=== PATIENT | male | born 1970 | race Caucasian/White ===

== ENCOUNTER 2022-04-06 07:00 | Day surgery (SDC) | payer OTHER ==
[~2022-04-06] VITALS: Ht 185.4 cm; Wt 166.0 kg
--- NOTE | ~2022-04-06 | OR ---
[facility] [address] [facility] [place], [place] [address] Draft DATE OF OPERATION: 04/06/2022 SURGEON: Deandra Ramon MD PREOPERATIVE DIAGNOSES: 1. Persistent diarrhea. 2. Episodic rectal bleeding. POSTOPERATIVE DIAGNOSIS: Severe colitis, left colon and rectum with proximal sparing. PROCEDURE: Total colonoscopy to cecum with intubation of ileum and biopsies. ANESTHESIA: Intravenous sedation, propofol infusion; Jonatan Moreno CRNA INDICATIONS: This 52-year-old obese white man has a number of medical issues. For the past six months at least, he has had episodes of diarrhea and occasional blood per rectum. His last colonoscopy was by Dr. Mesa, his primary provider in 2009, which was normal. He is admitted at this time to undergo colonoscopy to better characterize the problem, understand the risks of bleeding, infection, and perforation. FINDINGS: He had colitis, most consistent with ulcerative colitis. Extended from the rectum to the splenic flexure. This did not represent ischemic colitis. The colon more proximally was generally normal as was the ileum. DESCRIPTION OF PROCEDURE: The patient was brought to the endoscopy suite, given intravenous sedation with propofol infusional technique given his advanced underlying comorbidities. Digital rectal examination was normal. An Olympus video colonoscope was passed into the rectum and manipulated throughout the colon, noting inflammatory changes of the rectum, sigmoid, and all of the left colon. The scope was passed beyond the transverse colon to the cecum, which was entirely normal. The ileum was normal. Scope was passed into the ileum and biopsies obtained though the mucosa appeared normal. Scope was withdrawn and biopsies taken of the cecum and upon withdrawal of scope, the transverse colon. Biopsies were additionally taken of PATIENT NAME: JORDEN BRONSON OPERATIVE REPORT DATE OF : 72 REPORT #: [id number] PHYSICIAN: DEANDRA RAMON MD PCP: BK MESA MD REPORT IS CONFIDENTIAL AND NOT TO BE RELEASED WITHOUT AUTHORIZATION [address], [place] [address] Draft the proximal descending colon, sigmoid and the rectum. The scope was removed. The patient was taken to the recovery room in good condition. CONCLUDING DIAGNOSIS: Colitis, most likely ulcerative colitis. PLAN: We will initiate protocol of steroids, prednisone 40 mg daily tapering 10 mg every two weeks. Initiate mesalamine 800 mg t.i.d. (total 2.4 g daily), Flagyl 250 mg p.o. t.i.d. x2 weeks, and PPI medication on the basis of his steroid use (Prilosec 20 mg p.o. daily). He will return to see me in approximately 4 weeks. MD DANIELLA Chavez/RHIANNA /[id number] cc: Bk Mesa MD Copies: BK MESA MD ~ PATIENT NAME: JORDEN BRONSON OPERATIVE REPORT DATE OF : 72 REPORT #: [id number] PHYSICIAN: DEANDRA RAMON MD PCP: BK MESA MD REPORT IS CONFIDENTIAL AND NOT TO BE RELEASED WITHOUT AUTHORIZATION
[~2022-04-06 07:00] MED LIST: CARVEDILOL25 MG PO; ENTRESTO 97 MG1 EACH PO; SPIRONOLACTONE50 MG PO
--- NOTE | 2022-04-06 08:32 | NUR ---
PT ALERT, ORIENTED AND SUPPORTED BY HIS LUIS ANTONIO.PT HAS HAD SCOPE BEFORE AND SEEMS CALM, ALL QUESTIONS ASKED ANSWERED. HAD PRAYER WITH BOTH, LUIS ANTONIO WILL REMAIN FOR DC. WILL FOLLOW NEEDED
[2022-04-06] MEDS ORDERED: FLAGYL375 MG PO (09:08)
[2022-04-06] MEDS ORDERED: PREDNISONE10 MG PO (09:08)
[2022-04-06] MEDS ORDERED: PRILOSEC OTC20 MG PO (09:09)
[2022-04-06] MEDS ORDERED: MESALAMINE800 MG PO (09:10)
--- NOTE | 2022-04-06 09:37 | NUR ---
04/06/22 0937 Rashmi Ty 0856 PT ARRIVED IN PACU WIDE AWAKE WITH NO C/O'S. ABD SOFT. 0915 SITTING UP IN BED SIPPING ON WATER. 09 DR AT BEDSIDE. ALL QUESTIONS ANSWERED. 33 LEFT VIA W/C.
--- NOTE | 2022-04-08 12:58 | PATH ---
[facility] [address] [place], [place] [address] Signed SPECIMEN(S): A CECUM COLON BIOPSY SPECIMEN(S): B TERMINAL ILEUM BIOPSY SPECIMEN(S): C TRANSVERSE COLON BIOPSY SPECIMEN(S): D SPLENIC FLEXURE COLON BIOPSY SPECIMEN(S): E PROXIMAL DESCENDING/LEFT COLON BIOPSY SPECIMEN(S): F SIGMOID COLON BIOPSY SPECIMEN(S): G SIGMOID/RECTUM COLON BIOPSY SPECIMEN SOURCE: A. CECUM COLON BIOPSY B. TERMINAL ILEUM BIOPSY C. TRANSVERSE COLON BIOPSY D. SPLENIC FLEXURE COLON BIOPSY E. PROXIMAL DESCENDING/LEFT COLON BIOPSY F. SIGMOID COLON BIOPSY G. SIGMOID/RECTUM COLON BIOPSY CLINICAL HISTORY: Preop: Diarrhea; rectal bleeding; right lower abdominal pain. Postop: Colitis FINAL PATHOLOGIC DIAGNOSIS: A. Colon, cecum, biopsy: - Colonic mucosa with no histopathologic abnormality. - Negative for active, chronic, or microscopic colitis. - Negative for granulomas, dysplasia, or malignancy. B. Terminal ileum, biopsy: - Ileal mucosa with no histopathologic abnormality. - Negative for active inflammation or granulomas. - Negative for dysplasia or malignancy. C. Colon, transverse, biopsy: - Colonic mucosa with no histopathologic abnormality. - Negative for active, chronic, or microscopic colitis. - Negative for granulomas, dysplasia, or malignancy. D. Colon, splenic flexure, biopsy: - Colonic mucosa with no histopathologic abnormality. - Negative for active, chronic, or microscopic colitis. - Negative for granulomas, dysplasia, or malignancy. E. Colon, proximal descending/left, biopsy: - Chronic, active colitis. - Negative for granulomas, dysplasia, or malignancy. F. Colon, sigmoid, biopsy: PATIENT NAME: JORDEN BRONSON PATHOLOGY DATE OF : 72 REPORT #: [id number] PHYSICIAN: ZOYA AWAD PCP: FREDI FITCH MD REPORT IS CONFIDENTIAL AND NOT TO BE RELEASED WITHOUT AUTHORIZATION [facility] [address] [place], [place] [address] Signed - Chronic, active colitis. - Negative for granulomas, dysplasia, or malignancy. G. Colon, sigmoid/rectum, biopsy: - Chronic, active colitis/proctitis. - Negative for granulomas, dysplasia, or malignancy. COMMENT: Regarding specimens E-G: Sections are similar and show varying degrees of activity in the form of cryptitis and crypt abscesses as well as chronicity including crypt architectural distortion and lamina propria lymphoplasmacytosis. No granulomas or viral cytopathologic changes are identified. The findings may be compatible with inflammatory bowel disease in the appropriate clinical setting, and given the distribution and lack of granulomas, ulcerative colitis is favored. The differential diagnosis includes infectious etiologies and medication injury. Clinical correlation is required. NAL:cml:C2NR MICROSCOPIC EXAMINATION: Histologic sections of all submitted blocks are examined by light microscopy. These findings, together with the gross examination, support the pathologic diagnosis. GROSS DESCRIPTION: Seven specimens are received in seven containers, labeled "RA." A. The specimen, labeled "RA, 1," and designated on the requisition "cecum biopsy," is received in formalin and consists of two mclean soft tissue fragments that measure 0.2 and 0.4 cm in greatest dimension. The specimen is entirely submitted in cassette (A1). B. The specimen, labeled "RK, 2," and designated on the requisition "terminal ileum biopsy," is received in formalin and consists of one mclean soft tissue fragment that measures 0.7 cm in greatest dimension. The specimen is entirely submitted in cassette (B1). C. The specimen, labeled "RK, 3," and designated on the requisition "transverse biopsy," is received in formalin and consists of two mclean soft tissue fragments that measure 0.3 and 0.5 cm in greatest dimension. The specimen is entirely submitted in cassette (C1). D. The specimen, labeled "RK, 4," and designated on the requisition "splenic flexure biopsy," is received in formalin and consists of two mclean soft tissue fragments that measure 0.3 and 0.5 cm in PATIENT NAME: JORDEN BRONSON PATHOLOGY DATE OF : 72 REPORT #: [id number] PHYSICIAN: ZOYA AWAD PCP: FREDI FITCH MD REPORT IS CONFIDENTIAL AND NOT TO BE RELEASED WITHOUT AUTHORIZATION [facility] [address] [place], [place] [address] Signed greatest dimension. The specimen is entirely submitted in cassette (D1). E. The specimen, labeled "RK, 5," and designated on the requisition "proximal colon, descending/left biopsy," is received in formalin and consists of one elongated mclean soft tissue fragment that measures 0.7 cm in greatest dimension. The specimen is entirely submitted in cassette (E1). F. The specimen, labeled "RK, 6," and designated on the requisition "sigmoid biopsy," is received in formalin and consists of two mclean soft tissue fragments that measure 0.3 and 0.5 cm in greatest dimension. The specimen is entirely submitted in cassette (F1). G. The specimen, labeled "RK, 7," and designated on the requisition "rectum sigmoid biopsy," is received in formalin and consists of four mclean soft tissue fragments that measure 0.1 up to 0.3 cm in greatest dimension. The specimen is entirely submitted in cassette (G1). AI (under the direct supervision of a pathologist) The Gross Description was prepared using a voice recognition system. The report was reviewed for accuracy; however, sound-alike word errors, addition and/or deletions may occur. If there is any question about this report, please contact Client Services. PERFORMING LABORATORY: The technical component was [place] [address] (CLIA# [id number]). Professional interpretation was performed [place] [address] (CLIA# [id number]). Diagnostician: Alissa Jackson MD Pathologist Electronically Signed 04/08/2022 Copies: ~ PATIENT NAME: JORDEN BRONSON PATHOLOGY DATE OF : 72 REPORT #: [id number] PHYSICIAN: ZOYA AWAD PCP: FREDI FITCH MD REPORT IS CONFIDENTIAL AND NOT TO BE RELEASED WITHOUT AUTHORIZATION
== END 2022-04-06 09:33 | disposition home or self-care (01) ==
LOC: OPS 07:00 → DS 07:00 → OPS 08:00
PROVIDERS: ATTEND Surgery
PROC: 0DBN8ZX Excision of Sigmoid Colon, Via Natural or Artificial Opening Endoscopic, Diagnostic (ICD-10-PCS; 2022-04-06)
PROC: 0DBP8ZX Excision of Rectum, Via Natural or Artificial Opening Endoscopic, Diagnostic (ICD-10-PCS; 2022-04-06)
PROC: 0DBB8ZX Excision of Ileum, Via Natural or Artificial Opening Endoscopic, Diagnostic (ICD-10-PCS; 2022-04-06)
PROC: 0DBM8ZX Excision of Descending Colon, Via Natural or Artificial Opening Endoscopic, Diagnostic (ICD-10-PCS; 2022-04-06)
PROC: 0DBH8ZX Excision of Cecum, Via Natural or Artificial Opening Endoscopic, Diagnostic (ICD-10-PCS; principal; 2022-04-06 08:00)
DX: K51.511 Left sided colitis with rectal bleeding (principal); E66.01 Morbid (severe) obesity due to excess calories; I42.0 Dilated cardiomyopathy; Z68.42 Body mass index [BMI] 45.0-49.9, adult
CPT/HCPCS: J2001; J2250; J2704; J7121

== ENCOUNTER 2023-03-01 10:57 | Day surgery (SDC) | payer OTHER ==
[~2023-03-01] VITALS: Ht 185.4 cm; Wt 173.3 kg
[~2023-03-01 10:57] MED LIST changes: +BALSALAZIDE DI750 MG PO; +FLAGYL375 MG PO; +MESALAMINE800 MG PO; +PREDNISONE10 MG PO; +PRILOSEC OTC20 MG PO
[2023-03-01 11:23] VITALS: BP 134/83
[2023-03-01] MEDS ORDERED: BAYER CHEWABLE81 MG PO (11:25)
--- NOTE | 2023-03-01 12:40 | NUR ---
03/01/23 1240 Sheets,Tasha 1232 PT ARRIVED TO PACU ON RA, PT AWAKE AND LOOKING AROUND ROOM. PT REORIENTED TO PACU. PT ROLLED TO BACK AND HOB INCREASED SLGIHTLY. PT DENIES CONCERNS AND IS ENCOURAGED TO PASS GAS/AIR NEEDED. 1239 PT EYES CLOSED AND O2 LOW 90S.
[2023-03-01 12:59] VITALS: BP 126/71
--- NOTE | 2023-03-01 14:07 | NUR ---
RX CALLED IN TO [facility] PER MD. PT CALLED AND UPDATED ABOUT FOLLOW UP APPOINTMENT AND RX CHANGE.
--- NOTE | 2023-03-04 10:44 | PATH ---
[facility] [address] [facility] [place], [place] [address] Signed SPECIMEN(S): A CECUM BIOPSY SPECIMEN(S): B CECUM POLYP SPECIMEN(S): C RIGHT COLON BIOPSY SPECIMEN(S): D SIGMOID BIOPSY SPECIMEN(S): E RECTUM SPECIMEN SOURCE: A. CECUM BIOPSY B. CECUM POLYP C. RIGHT COLON BIOPSY D. SIGMOID BIOPSY E. RECTUM CLINICAL HISTORY: Follow up colonoscopy for ulcerative colitis; diverticuli FINAL PATHOLOGIC DIAGNOSIS: A. Cecum, biopsy: - Quiescent colonic mucosa, negative for dysplasia. B. Cecum, polyp: - Tubular adenoma. - Quiescent colonic mucosa. C. Right colon, biopsy: - Quiescent colonic mucosa, negative for dysplasia. D. Sigmoid, biopsy: - Mild chronic active colitis, negative for dysplasia. E. Rectum, biopsy: - Moderate chronic active colitis with focal epithelial erosion and ulceration. - Negative for dysplasia. COMMENT: The cecum polyp in specimen B likely represents a sporadic adenoma given the clinical impression of polyp and the lack of adjacent significant inflammation. Clinical correlation is requested. JVR:cml:C2NR MICROSCOPIC EXAMINATION: Histologic sections of all submitted blocks are examined by light microscopy. These findings, together with the gross examination, support the pathologic diagnosis. PATIENT NAME: JORDEN BRONSON PATHOLOGY DATE OF : 72 REPORT #: [id number] PHYSICIAN: ZOYA AWAD PCP: FREDI FITCH MD REPORT IS CONFIDENTIAL AND NOT TO BE RELEASED WITHOUT AUTHORIZATION [facility] [address] [place], [place] [address] Signed GROSS DESCRIPTION: A. The specimen, labeled and designated "[place], R, 1." and designated on the requisition "cecum biopsy," is received in formalin and consists of one mclean soft tissue fragment that is 0.4 cm in greatest dimension. The specimen is entirely submitted in (A1). B. The specimen, labeled and designated "[place], R, 2." and designated on the requisition "cecum polyp," is received in formalin and consists of one mclean soft tissue fragment that is 0.5 cm in greatest dimension. The specimen is entirely submitted in (B1). C. The specimen, labeled and designated "[place], R, 3." and designated on the requisition "right colon biopsy," is received in formalin and consists of three mclean soft tissue fragments that measure 0.1 to 0.4 cm in greatest dimension. The specimen is entirely submitted in (C1). D. The specimen, labeled and designated "[place], R, 4." and designated on the requisition "sigmoid colon biopsy," is received in formalin and consists of four mclean soft tissue fragments that measure 0.2 to 0.4 cm in greatest dimension. The specimen is entirely submitted in (D1). E. The specimen, labeled and designated "[place], R, 5." and designated on the requisition "rectum biopsy," is received in formalin and consists of two mclean soft tissue fragments that measure 0.3 to 0.5 cm in greatest dimension. The specimen is entirely submitted in (E1). FB (under the direct supervision of a pathologist) The Gross Description was prepared using a voice recognition system. The report was reviewed for accuracy; however, sound-alike word errors, addition and/or deletions may occur. If there is any question about this report, please contact Client Services. PERFORMING LABORATORY: The technical component was performed by [facility], [address] [place], [place] [address]te[facility] [place] [address] (CLIA# [id number]). Professional interpretation was performed by [facility], [address] [place], [place] [address]e., [place] [address] (CLIA#: [id number]). Diagnostician: Ethan Mcgrath MD Pathologist Electronically Signed 03/04/2023 PATIENT NAME: JORDEN BRONSON PATHOLOGY DATE OF : 72 REPORT #: [id number] PHYSICIAN: ZOYA AWAD PCP: FREDI FITCH MD REPORT IS CONFIDENTIAL AND NOT TO BE RELEASED WITHOUT AUTHORIZATION [address] [place], [place] [address] Signed Copies: ~ PATIENT NAME: JORDEN BRONSON PATHOLOGY DATE OF : 72 REPORT #: [id number] PHYSICIAN: ZOYA AWAD PCP: FREDI FITCH MD REPORT IS CONFIDENTIAL AND NOT TO BE RELEASED WITHOUT AUTHORIZATION
--- NOTE | 2023-03-04 19:01 | OR ---
[facility] [address] [place], [place] [address] Signed DATE OF OPERATION: 03/01/2023 SURGEON: Deandra Ramon MD PREOPERATIVE DIAGNOSES: 1. Longstanding ulcerative colitis, now with colitis, "in flare.". 2. Morbid obesity (370 pounds). POSTOPERATIVE DIAGNOSES: 1. Moderate colitis, sigmoid and rectum. . 2. Small polyp of cecum (excised). 3. Diverticular changes. PROCEDURE: Total colonoscopy to cecum with cold morcellation polypectomy x1 and biopsies. ANESTHESIA: Intravenous sedation; fentanyl 150 mcg, Versed 12 mg. INDICATION: This morbidly obese 370-pound white man is a patient of Dr. Mesa and diagnosed with ulcerative colitis. He is generally well managed by balsalazide 750 mg p.o. t.i.d. He recently has had a "flare" including the bloody diarrhea with only semiformed stool. His flare was initially managed by prednisone 40 mg p.o. daily, however, that appeared not to be adequate and therefore I had him take prednisone 60 mg daily based on his weight. He is starting to come under control regarding his flare of symptoms. He is admitted at this time to undergo colonoscopy to better characterize the level of colonic inflammation to better guide therapy. FINDINGS: Complete colonoscopy was undertaken to the cecum. There was a small polyp of the cecum, which was excised. Biopsies were taken of the cecum and elsewhere including the sigmoid and rectum. The actual colitis involve the sigmoid colon and the rectum. There are a few scattered diverticula as well. DESCRIPTION OF PROCEDURE: The patient was brought to the endoscopy suite and placed in the lateral decubitus position, given intravenous sedation to the point of slurred speech and nystagmus. Digital rectal examination was normal. Electronically Signed By: DEANDRA RAMON MD 03/04/23 190 PATIENT NAME: JORDEN BRONSON OPERATIVE REPORT DATE OF : 72 REPORT #: [id number] PHYSICIAN: DEANDRA RAMON MD PCP: FREDI MESA MD REPORT IS CONFIDENTIAL AND NOT TO BE RELEASED WITHOUT AUTHORIZATION [facility] [address] [place], [place] [address] Signed An Olympus video colonoscope was passed in the rectum and manipulated throughout the colon ultimately intubating the cecum itself. The ileocecal valve and appendiceal orifice were normal. A small polyp was noted in the cecum, this was excised with cold morcellation technique. Additionally, biopsies were taken of the cecum, though it appeared normal otherwise. Scope was withdrawn and biopsies were taken randomly and labeled appropriately. The area of actual colitis was in the mid descending colon and sigmoid, which was clearly demarcated from proximal colon. These areas were biopsied as well. The rectum was also biopsied and was clearly with proctitis. Retroflexed view was normal except for hemorrhoids. The scope was removed and the patient was taken to the recovery room in good condition. CONCLUDING DIAGNOSES: Colitis and flare now coming under better control with prednisone 60 mg daily. PLAN: Continue with the tapering schedule as outlined to the patient, 60 mg for two weeks, 50 mg for two weeks going forward and re-initiate balsalazide 750 mg p.o. t.i.d. He will continue with Prilosec 20 mg a day as well. He will return to see me in approximately 3 to 4 weeks. If he has worsening symptoms, he will let me know. MD DANIELLA Chavez/MICHELLEL /[id number] cc: Fredi Mesa MD Copies: FREDI MESA MD ~ Electronically Signed By: DEANDRA RAMON MD 03/04/23 1901 PATIENT NAME: SUSANAYURIJORDEN LEROY OPERATIVE REPORT DATE OF : 72 REPORT #: [id number] PHYSICIAN: DEANDRA RAMON MD PCP: FREDI MESA MD REPORT IS CONFIDENTIAL AND NOT TO BE RELEASED WITHOUT AUTHORIZATION
== END 2023-03-01 13:13 | disposition home or self-care (01) ==
LOC: OPS 10:57 → DS 11:00 → OPS 12:00 → DS 12:00 → OPS 13:13
PROVIDERS: ATTEND Surgery
PROC: 0DBH8ZZ Excision of Cecum, Via Natural or Artificial Opening Endoscopic (ICD-10-PCS; principal; 2023-03-01 12:00)
DX: D12.0 Benign neoplasm of cecum (principal); K52.9 Noninfective gastroenteritis and colitis, unspecified; K51.90 Ulcerative colitis, unspecified, without complications; E66.01 Morbid (severe) obesity due to excess calories; K57.30 Diverticulosis of large intestine without perforation or abscess without bleeding
CPT/HCPCS: 99153; G0500; J2250; J3010; J7121